=== PATIENT | female | born 1950 | race Native Hawaiian/Other Pacific Islander ===

== ENCOUNTER 2017-09-23 06:51 | Day surgery (SDC) | payer MEDICARE, OTHER ==
[2017-09-16 10:05] VITALS: BMI 24.5
[2017-09-23] MEDS ORDERED: Silver Nitrate Topical - Stick ONE (07:25)
[2017-09-23] MEDS ORDERED: ACETIC ACID 3% 30 ML LIQUID MC ONE (07:26)
[2017-09-23] MEDS ORDERED: Strong Iodine Topical Sol. 5%-10% ONE (07:26)
[2017-09-23] MEDS ORDERED: Ferric Subsulfate Sol(60 mL) ONE (07:26)
[2017-09-23] MEDS ORDERED: Propofol 10 mg/ml Inj (20 ML) ONE (08:51)
[2017-09-23] MEDS ORDERED: Midazolam 2 MG/2 ML VIAL ONE (08:52)
[2017-09-23] MEDS ORDERED: Phenylephrine 10 mg/ml Inj ONE (09:51)
[2017-09-23] MEDS ORDERED: ePHEDrine 50 mg/ml Inj ONE (09:51)
[2017-09-23] MEDS ORDERED: Lactated Ringer's 1,000 ML IV ONE (10:01)
[2017-09-23] MEDS ORDERED: Lactated Ringer's 500 ML IV ONE ×2 (10:02)
[2017-09-23 13:36] VITALS: BP 125/69; PULSE 86; RESP 20; TEMP 97.4; O2SAT 96
--- NOTE | 2017-09-24 21:53 | OP ---
PROCEDURE DATE: 09/23/2017 PREOPERATIVE DIAGNOSES: Postmenopausal bleeding and thickened endometrium ultrasound. POSTOPERATIVE DIAGNOSES: Postmenopausal bleeding and thickened endometrium ultrasound with endometrial polyp. PROCEDURE: Hysteroscopy, dilatation and curettage, and polypectomy with MyoSure. SURGEON: Le Cowart MD MEDICINE TEACHER: Dr. Tomeka Barraza, PGY-2. INTRAVENOUS FLUIDS: 1400 mL lactated Ringer's. URINE OUTPUT: 50 mL clear drained with red rubber catheter. ESTIMATED BLOOD LOSS: 15 mL. FLUID DEFICIT: 895 mL. Normal saline used. FINDINGS: Anteverted uterus of normal size was noted with bimanual exam under anesthesia and both adnexa were palpated and found to be normal with no masses identified. On hysteroscopic evaluation, an approximately 2 cm endometrial polyp was noted filling the entire cavity. DESCRIPTION OF PROCEDURE: The patient was taken to the operating room where she was prepped and draped in the normal sterile fashion in dorsal lithotomy position. After general anesthesia was given without difficulty, the bimanual exam was performed and the findings noted above. Following this, a weighted speculum was placed in the vagina and the cervix was then seen and grasped and the anterior lip was grasped with a single-tooth tenaculum. The uterus was then sounded to a depth of 8 cm. The endocervical canal was then progressively dilated using with Robert's and Hegar dilators. The hysteroscope was then introduced into the uterine cavity using normal saline as the distending media with the attached camera. The endometrial cavity was distended with fluids and the cavity was well visualized. Approximately 2 cm polyp was then identified filling the entire endometrial cavity. The endometrium was otherwise atrophic and the left ostia was seen. The right ostia was by the endometrial polyp. The MayoSure device was then introduced and a polypectomy was performed. Following this, the device was removed and a sharp curette was then introduced. This was used to obtain a moderate amount of tissue, which was sent to pathology for analysis. The hysteroscope was then again reintroduced and good hemostasis was noted where the polypectomy was performed and throughout. All instruments were then removed from the vaginal vault at this time and good hemostasis was noted at the area where the tenaculum was placed. The patient was then repositioned, awakened from anesthesia, and transferred to the recovery room in stable condition. She will be discharged to home on the same day and given a prescription for Motrin for pain and informed to follow up in the office in 2 weeks for a pathology results and postoperative evaluation. Le Cowart MD
== END 2017-09-23 13:55 | disposition home or self-care (01) ==
LOC: H.OPSURG 06:51
PROVIDERS: ATTEND Obstetrics & Gynecology
DX: N84.0 Polyp of corpus uteri (principal); E78.5 Hyperlipidemia, unspecified; N95.0 Postmenopausal bleeding
CPT/HCPCS: 58558; 88305; J2001; J2250; J2370; J2704; J3010; J7120